=== PATIENT | female | born 1980 | race Caucasian/White ===

== ENCOUNTER 2020-03-02 09:10 | Day surgery (SDC) | payer OTHER ==
[~2020-03-02 09:10] MED LIST: FOLIC ACID0.8 MG PO; MAGNESIUM400 MG PO; PRENATAL TABLE1 EAC1 PO
[2020-03-02] MEDS ORDERED: DOXYCYCLINE HY100 MG PO (12:17)
== END 2020-03-02 14:45 | disposition home or self-care (01) ==
LOC: CIR.AMB 09:10
PROVIDERS: ATTEND Obstetrics & Gynecology
DX: O02.1 Missed abortion (principal); Z20.828 Contact with and (suspected) exposure to other viral communicable diseases

== ENCOUNTER → 2020-10-24 | Outpatient (CLI) | payer OTHER ==
[~2020-10-24] MED LIST changes: +DOXYCYCLINE HY100 MG PO
== END | disposition home or self-care (01) ==
LOC: PRENATAL 13:28
PROVIDERS: ATTEND Obstetrics & Gynecology Maternal & Fetal Medicine
DX: O99.891 Other specified diseases and conditions complicating pregnancy (principal); O99.211 Obesity complicating pregnancy, first trimester; O09.521 Supervision of elderly multigravida, first trimester; O36.80X1 Pregnancy with inconclusive fetal viability, fetus 1; Z36.89 Encounter for other specified antenatal screening; Z3A.13 13 weeks gestation of pregnancy

== ENCOUNTER → 2020-12-17 | Outpatient (CLI) | payer OTHER | END | disposition home or self-care (01) | LOC: PRENATAL 13:00 | PROVIDERS: ATTEND Obstetrics & Gynecology Maternal & Fetal Medicine | DX: O35.0XX1 Maternal care for (suspected) central nervous system malformation in fetus, fetus 1 (principal); O35.3XX1 Maternal care for (suspected) damage to fetus from viral disease in mother, fetus 1; O98.512 Other viral diseases complicating pregnancy, second trimester; Z36.89 Encounter for other specified antenatal screening; Z3A.21 21 weeks gestation of pregnancy ==

== ENCOUNTER 2021-02-27 15:19 | Outpatient (CLI) | payer OTHER | END 2021-02-27 17:09 | disposition home or self-care (01) | LOC: PRENATAL 15:19 | PROVIDERS: ATTEND Obstetrics & Gynecology Maternal & Fetal Medicine | DX: O26.843 Uterine size-date discrepancy, third trimester (principal); O09.523 Supervision of elderly multigravida, third trimester; O24.410 Gestational diabetes mellitus in pregnancy, diet controlled; Z36.89 Encounter for other specified antenatal screening; Z3A.32 32 weeks gestation of pregnancy ==

== ENCOUNTER 2021-04-09 10:14 | Outpatient (CLI) | payer OTHER | END 2021-04-09 15:52 | disposition home or self-care (01) | LOC: OBS/DEL 10:14 | PROVIDERS: ATTEND Obstetrics & Gynecology | DX: O32.1XX0 Maternal care for breech presentation, not applicable or unspecified (principal); Z3A.36 36 weeks gestation of pregnancy; Z20.822 Contact with and (suspected) exposure to COVID-19 ==

== ENCOUNTER 2021-04-22 16:29 | Inpatient (IN) | payer OTHER ==
[~2021-04-22] VITALS: Ht 160 cm; Wt 3.6 kg
[2021-04-24] MEDS ORDERED: IBUPROFEN800 MG PO (14:39)
[2021-04-24] MEDS ORDERED: DOCUSATE SODIU100 MG PO (14:39)
[2021-04-24] MEDS ORDERED: OXYC1TAB9 PO (14:39)
== END 2021-04-24 17:22 | disposition home or self-care (01) | DRG 787 ==
LOC: LDR 16:29 → OB/GYN 16:29 → LDR 17:18 → O/R 20:53 → OB/GYN 22:11
PROVIDERS: ADMIT Obstetrics & Gynecology; ATTEND Obstetrics & Gynecology
PROC: 4A1HXFZ Monitoring of Products of Conception, Cardiac Rhythm, External Approach (ICD-10-PCS; 2021-04-22)
PROC: 10D00Z1 Extraction of Products of Conception, Low, Open Approach (ICD-10-PCS; principal; 2021-04-22 19:00)
DX: O32.1XX0 Maternal care for breech presentation, not applicable or unspecified (principal); O41.03X0 Oligohydramnios, third trimester, not applicable or unspecified; O24.420 Gestational diabetes mellitus in childbirth, diet controlled; O99.824 Streptococcus B carrier state complicating childbirth; Z3A.38 38 weeks gestation of pregnancy; Z37.0 Single live birth